=== PATIENT | female | born 1985 | race Caucasian/White ===

== ENCOUNTER 2018-10-27 21:38 | Emergency (ER) | payer OTHER ==
[~2018-10-27] VITALS: Ht 172.7 cm; Wt 63.5 kg
[~2018-10-27 21:38] MED LIST: KELNOR 1/35 351 TAB PO; LEVOTHYROXIN0.125 M1 PO; Motrin,Rufen800 MG PO; ULTRAM50 MG PO
== END 2018-10-27 22:54 | disposition home or self-care (01) ==
LOC: ED 21:38
DX: S46.912A Strain of unspecified muscle, fascia and tendon at shoulder and upper arm level, left arm, initial encounter (principal); Z88.1 Allergy status to other antibiotic agents; Z79.899 Other long term (current) drug therapy; X50.0XXA Overexertion from strenuous movement or load, initial encounter; Y93.89 Activity, other specified; Y92.89 Other specified places as the place of occurrence of the external cause; Y99.0 Civilian activity done for income or pay